=== PATIENT | male | born 1980 | race Asian ===

== ENCOUNTER 2018-02-05 11:43 | Emergency (ER) | payer SELFPAY ==
[~2018-02-05] VITALS: Ht 167.6 cm; Wt 81.6 kg
[2018-02-05 11:50] VITALS: BP 135/107
--- NOTE | 2018-02-05 11:52 | NUR ---
PT AMBULATED TO ER BED 08
--- NOTE | 2018-02-05 12:05 | NUR ---
PT. CAME INTO THE ED W/ C/O LOWER BACK PAIN X 1 DAY. PT. STATES " I HAVE HAD A PAIN IN MY LOWER BACK ON THE R SIDE FOR 1 DAY 03/14 AND IT IS SHARP". PT. IS AAOX4, RR EVEN AND UNLABORED, DENIES CHEST PAIN, DENIES SOB, DENIES N/V/D. 03/14 SHARP PAIN THAT IS NON RADIATING ON R LOWER BACK. ER MD NOTIFIED. WILL CONTINUE TO MONITOR.
--- NOTE | 2018-02-05 12:15 | NUR ---
PT. TAKEN TO CT VIA WHEELCHAIR.
[2018-02-05 12:31] LABS: APPEARANCE,URINE CLEAR (CLEAR); BILIRUBIN,URINE NEGATIVE (NEGATIVE); COLOR,URINE YELLOW (YELLOW); LEUKOCYTE ESTERASE ,URINE NEGATIVE (NEGATIVE); NITRITE, URINE NEGATIVE (NEGATIVE); UGLUCOSE NEGATIVE (NEGATIVE)
[2018-02-05 12:42] LABS: BLOOD, URINE TRACE (NEGATIVE); RBC,URINE 0-5 (RARE) /HPF (0-5); WBC,URINE 0-5 (RARE) /HPF (0-5)
[2018-02-05 12:59] VITALS: BP 128/98
== END 2018-02-05 12:59 | disposition home or self-care (01) ==
LOC: MED 11:43
DX: S39.012A Strain of muscle, fascia and tendon of lower back, initial encounter (principal); X58.XXXA Exposure to other specified factors, initial encounter; R03.0 Elevated blood-pressure reading, without diagnosis of hypertension; Y93.89 Activity, other specified; Y99.8 Other external cause status; Y92.89 Other specified places as the place of occurrence of the external cause
CPT/HCPCS: 81001; 99285